=== PATIENT | female | born 1985 | race Asian ===

== ENCOUNTER 2021-03-13 21:34 | Inpatient (IN) | payer OTHER ==
[2021-03-13] MEDS ORDERED: PROMETHAZINE HCL 25 MG/1 ML VIAL IVPUSH ONE (22:45)
[2021-03-13] MEDS ORDERED: BUTORPHANOL TARTRATE 1 MG/ML VIAL IVPB ONE (22:45)
[2021-03-13 22:49] LABS: BASO % 0.4 % (0-2.0); EOS % 1.4 % (0-4.5); HEMATOCRIT 33.2 % (32.4-45.2); HEMOGLOBIN 11.3 GM/dL (10.7-15.3); LYMPH % 19.4 % (8-40); MCH 30.1 pg (25.7-33.7); MCHC 33.9 g/dl (32.0-36.0); MEAN CELL VOLUME 88.7 fl (80-96); MONO % 8.7 % (3.8-10.2); NEUT % 70.1 % (42.8-82.8); PLATELET COUNT 246 10^3/uL (134-434); RBC 3.74 M/mm3 (3.60-5.2); RDW 13.5 % (11.6-15.6); WHITE BLOOD COUNT 10.4 K/mm3 (4.0-10.0)
[2021-03-13] MEDS ORDERED: DINOPROSTONE 10 MG VAGINAL SUPPOSITORY VG ONE (22:50)
[2021-03-13 22:55] VITALS: BMI 32.5
[2021-03-13] MEDS ORDERED: LACTATED RINGERS SOLUTION 1,000 ML/1,000 ML INFUS.BAG IV SCH (23:00)
[2021-03-13] MEDS ORDERED: ZOLPIDEM TARTRATE 5 MG TABLET PO PRN (23:23)
[2021-03-14] MEDS ORDERED: PROMETHAZINE HCL 25 MG/1 ML VIAL ONE (02:16)
[2021-03-14] MEDS ORDERED: BUTORPHANOL TARTRATE 2 MG/ML VIAL ONE (02:16)
[2021-03-14] MEDS ORDERED: PCA PUMP NR ONE (07:13)
[2021-03-14] MEDS ORDERED: BUPIVACAINE HCL/PF 0.25% (2.5MG/ML) 10 ML VIAL ONE (07:21)
[2021-03-14] MEDS ORDERED: FENTANYL/BUPIVACAINE/NS/PF - PCEA - 50 ML DISP.SYRIN EP ONE (07:24)
[2021-03-14] MEDS ORDERED: LIDOCAINE HCL 1% PRESERVATIVE FREE - 30ML VIAL ONE ×2 (07:46→11:31)
[2021-03-14] MEDS ORDERED: NALOXONE HCL 0.4 MG/ML VIAL IVPUSH PRN (08:26)
[2021-03-14] MEDS ORDERED: FENTANYL/BUPIVACAINE/NS/PF - PCEA - 50 ML DISP.SYRIN EP SCH (08:30)
[2021-03-14] MEDS ORDERED: OXYTOCIN 30 UNITS in 0.9% NS 30 UNIT/500 ML INFUS.BAG IVPB SCH (08:30)
[2021-03-14] MEDS ORDERED: OXYTOCIN 30 UNITS in 0.9% NS 30 UNIT/500 ML INFUS.BAG IVPB ONE (09:27)
[2021-03-14] MEDS ORDERED: OXYTOCIN 20 UNITS in 0.9% NS 20 UNIT/1,000 ML INFUS.BAG IV ONE (11:31)
[2021-03-14] MEDS ORDERED: METHYLERGONOVINE MALEATE 0.2 MG/1 ML AMP IM PRN (14:45)
[2021-03-14] MEDS ORDERED: OXYTOCIN 20 UNITS in 0.9% NS 20 UNIT/1,000 ML INFUS.BAG IV SCH (14:45)
[2021-03-14] MEDS ORDERED: ACETAMINOPHEN 325 MG TABLET (FP) PO PRN (14:45)
[2021-03-14] MEDS ORDERED: BISACODYL 10 MG SUPP.RECT RC PRN (14:45)
[2021-03-14] MEDS ORDERED: BENZOCAINE 20% 57 GM BOTTLE TP PRN (14:45)
[2021-03-14] MEDS ORDERED: WITCH HAZEL 50% (TUCKS) 40 PAD/JAR PAD TP PRN (14:45)
[2021-03-14] MEDS ORDERED: oxyCODONE HCL 5 MG TABLET PO PRN (14:45)
[2021-03-14] MEDS ORDERED: BENZOCAINE 28 GM HEMORRHOIDAL OINTMENT TP PRN (14:45)
[2021-03-14] MEDS: IBUPROFEN 600 MG TABLET (FP) PO PRN ×2 (16:26→22:30)
[2021-03-15] MEDS: LEVOTHYROXINE NA 25 MCG TABLET (FP) PO SCH (06:31)
[2021-03-15 08:35] LABS: BASO % 0.1 % (0-2.0); EOS % 0.4 % (0-4.5); HEMATOCRIT 22.3 % (32.4-45.2); HEMOGLOBIN 7.6 GM/dL (10.7-15.3); LYMPH % 14.1 % (8-40); MCH 30.5 pg (25.7-33.7); MCHC 34.1 g/dl (32.0-36.0); MEAN CELL VOLUME 89.6 fl (80-96); MEAN PLT VOLUME 7.7 fl (7.5-11.1); MONO % 7.6 % (3.8-10.2); NEUT % 77.8 % (42.8-82.8); PLATELET COUNT 188 10^3/uL (134-434); RBC 2.49 M/mm3 (3.60-5.2); RDW 13.9 % (11.6-15.6); WHITE BLOOD COUNT 16.7 K/mm3 (4.0-10.0)
[2021-03-15] MEDS: IBUPROFEN 600 MG TABLET (FP) PO PRN ×2 (09:07→16:27)
[2021-03-15] MEDS: PRENATAL VITAMINS W/ FOLIC ACID TABLET (FP) PO SCH (09:07)
[2021-03-15] MEDS ORDERED: DIPHTH,PERTUSS(ACELL),TET 0.5 ML DISP.SYRIN IM ONE (10:00)
[2021-03-15] MEDS: FERROUS SO4 325 MG TABLET (FP) PO SCH (21:15)
[2021-03-15] MEDS ORDERED: SENNOSIDES/DOCUSATE COMBO (SENNA PLUS) TABLET (UD) PO PRN (22:00)
[2021-03-16] MEDS: IBUPROFEN 600 MG TABLET (FP) PO PRN (05:04)
[2021-03-16] MEDS: LEVOTHYROXINE NA 25 MCG TABLET (FP) PO SCH (07:23)
[2021-03-16] MEDS: PRENATAL VITAMINS W/ FOLIC ACID TABLET (FP) PO SCH (09:26)
[2021-03-16] MEDS: FERROUS SO4 325 MG TABLET (FP) PO SCH (09:26)
[2021-03-16 09:36] VITALS: BP 114/57; PULSE 69; TEMP 98.3
[2021-03-16] MEDS ORDERED: DIPHTH,PERTUSS(ACELL),TET 0.5 ML DISP.SYRIN IM ONE (10:00)
[2021-03-16 22:30] LABS: HIV INTERPRETATION NEGATIVE (NEGATIVE)
== END 2021-03-16 10:45 | disposition home or self-care (01) | DRG 807 ==
LOC: JLDR 21:34 → J3W 03-14 15:55
PROVIDERS: ADMIT Obstetrics & Gynecology; ATTEND Obstetrics & Gynecology
PROC: 10E0XZZ Delivery of Products of Conception, External Approach (ICD-10-PCS; principal; 2021-03-14)
PROC: 0W8NXZZ Division of Female Perineum, External Approach (ICD-10-PCS; 2021-03-14)
DX: O80 Encounter for full-term uncomplicated delivery (principal); Z37.0 Single live birth; Z3A.39 39 weeks gestation of pregnancy
CPT/HCPCS: 36415; 59409; 82962; 85025; 86850; 86900; 86901; 87389; 90715

== ENCOUNTER 2023-03-11 07:22 | Inpatient (IN) | payer BC ==
[2023-03-11] MEDS: ELECTROLYTE-148 SOLN 1,000 ML IV SCH ×2 (08:00→16:50)
[2023-03-11] MEDS ORDERED: OXYTOCIN 30 UNITS in 0.9% NS 30 UNIT/500 ML INFUS.BAG IVPB ONE (08:07)
[2023-03-11] MEDS ORDERED: AMPICILLIN - 2 GM in SODIUM CHLORIDE 100 ML IVPB ONE (08:27)
[2023-03-11 08:28] VITALS: BMI 31.9
[2023-03-11] MEDS ORDERED: OXYTOCIN 30 UNITS in 0.9% NS 30 UNIT/500 ML INFUS.BAG IVPB SCH (08:30)
[2023-03-11] MEDS ORDERED: SODIUM CHLORIDE 100 ML IVPB ONE ×3 (08:37→16:44)
[2023-03-11] MEDS ORDERED: AMPICILLIN SODIUM 2 GM VIAL ONE (08:37)
[2023-03-11 08:50] LABS: BASO % 0.3 % (0-2.0); EOS % 0.7 % (0-4.5); HEMATOCRIT 35.9 % (32.4-45.2); HEMOGLOBIN 12.4 GM/dL (10.7-15.3); LYMPH % 21.3 % (8-40); MCHC 34.7 g/dl (32.0-36.0); MEAN CELL VOLUME 86.6 fl (80-96); MEAN PLT VOLUME 7.4 fl (7.5-11.1); MONO % 7.4 % (3.8-10.2); NEUT % 70.3 % (42.8-82.8); PLATELET COUNT 244 10^3/uL (134-434); RBC 4.14 M/mm3 (3.60-5.2); RDW 13.6 % (11.6-15.6); WHITE BLOOD COUNT 7.9 K/mm3 (4.0-10.0)
[2023-03-11 08:55] LABS: INR 0.97 (0.83-1.09); PROTHROMBIN TIME (PATIENT) 11.2 SEC (9.7-13.0)
[2023-03-11 08:57] LABS: ACTIVATED PTT 26.4 SECONDS (25.2-36.5)
[2023-03-11 09:06] LABS: POTASSIUM 4.1 mmol/L (3.5-5.1)
[2023-03-11 09:07] LABS: CALCIUM 8.4 mg/dL (8.5-10.1)
[2023-03-11 09:11] LABS: CREATININE 0.7 mg/dL (0.55-1.3)
[2023-03-11 09:38] LABS: SYPHILIS W/ RPR CONF NON-REACTIVE (NONREACTIVE)
[2023-03-11 10:06] LABS: HIV INTERPRETATION NEGATIVE (NEGATIVE)
[2023-03-11] MEDS ORDERED: AMPICILLIN SODIUM 1 GM VIAL ONE ×2 (12:48→16:44)
[2023-03-11] MEDS: AMPICILLIN - 1 GM in SODIUM CHLORIDE 100 ML IVPB SCH ×3 (12:54→22:23)
[2023-03-11] MEDS ORDERED: FENTANYL/BUPIVACAINE/NS/PF - PCEA - 50 ML DISP.SYRIN EP ONE (14:58)
[2023-03-11] MEDS ORDERED: NALOXONE HCL 0.4 MG/ML VIAL IVPUSH PRN (16:28)
[2023-03-11] MEDS ORDERED: FENTANYL/BUPIVACAINE/NS/PF - PCEA - 50 ML DISP.SYRIN EP SCH (16:30)
[2023-03-11] MEDS ORDERED: OXYTOCIN 20 UNITS in 0.9% NS 20 UNIT/1,000 ML INFUS.BAG IV ONE (19:11)
[2023-03-11] MEDS ORDERED: BISACODYL 10 MG SUPP.RECT RC PRN (19:42)
[2023-03-11] MEDS ORDERED: METHYLERGONOVINE MALEATE 0.2 MG/1 ML AMP IM PRN (19:42)
[2023-03-11] MEDS ORDERED: WITCH HAZEL 50% (TUCKS) 40 PAD/JAR PAD TP PRN (19:42)
[2023-03-11] MEDS ORDERED: BENZOCAINE 20% 57 GM BOTTLE TP PRN (19:42)
[2023-03-11] MEDS ORDERED: ACETAMINOPHEN 325 MG TABLET (FP) PO PRN (19:42)
[2023-03-11] MEDS ORDERED: oxyCODONE HCL 5 MG TABLET PO PRN (19:42)
[2023-03-11] MEDS ORDERED: BENZOCAINE 28 GM HEMORRHOIDAL OINTMENT TP PRN (19:42)
[2023-03-11] MEDS ORDERED: OXYTOCIN 20 UNITS in 0.9% NS 20 UNIT/1,000 ML INFUS.BAG IV SCH (19:45)
[2023-03-11] MEDS ORDERED: IBUPROFEN 600 MG TABLET (FP) PO ONE (22:16)
[2023-03-11] MEDS: IBUPROFEN 600 MG TABLET (FP) PO PRN (22:24)
[2023-03-12 09:01] LABS: BASO % 0.2 % (0-2.0); EOS % 0.3 % (0-4.5); HEMATOCRIT 31.9 % (32.4-45.2); HEMOGLOBIN 10.5 GM/dL (10.7-15.3); LYMPH % 15.8 % (8-40); MCH 29.3 pg (25.7-33.7); MEAN CELL VOLUME 88.9 fl (80-96); MEAN PLT VOLUME 7.4 fl (7.5-11.1); MONO % 5.3 % (3.8-10.2); NEUT % 78.4 % (42.8-82.8); PLATELET COUNT 256 10^3/uL (134-434); RBC 3.58 M/mm3 (3.60-5.2); RDW 13.5 % (11.6-15.6); WHITE BLOOD COUNT 13.2 K/mm3 (4.0-10.0)
[2023-03-12] MEDS: PRENATAL VITAMINS W/ FOLIC ACID TABLET (FP) PO SCH (10:49)
[2023-03-12] MEDS: FERROUS SO4 325 MG TABLET (FP) PO SCH (10:49)
[2023-03-12] MEDS: IBUPROFEN 600 MG TABLET (FP) PO PRN (19:49)
[2023-03-12 21:54] VITALS: PULSE 97
[2023-03-12] MEDS ORDERED: SENNOSIDES/DOCUSATE COMBO (SENNA PLUS) TABLET (UD) PO PRN (22:00)
[2023-03-13] MEDS: PRENATAL VITAMINS W/ FOLIC ACID TABLET (FP) PO SCH (09:50)
[2023-03-13] MEDS: FERROUS SO4 325 MG TABLET (FP) PO SCH (09:50)
[2023-03-13 09:53] VITALS: BP 120/77; RESP 18; TEMP 97.8
== END 2023-03-13 12:15 | disposition home or self-care (01) | DRG 807 ==
LOC: JLDR 07:22 → J3W 23:27
PROVIDERS: ADMIT Obstetrics & Gynecology; ATTEND Obstetrics & Gynecology
PROC: 0W8NXZZ Division of Female Perineum, External Approach (ICD-10-PCS; principal; 2023-03-11)
PROC: 10E0XZZ Delivery of Products of Conception, External Approach (ICD-10-PCS; 2023-03-11)
DX: O24.420 Gestational diabetes mellitus in childbirth, diet controlled (principal); Z37.0 Single live birth; Z3A.39 39 weeks gestation of pregnancy
CPT/HCPCS: 36415; 80048; 82962; 85025; 85610; 85730; 86780; 86850; 86900; 86901; 87389